=== PATIENT | male | born 1985 | race African-American/Black ===

== ENCOUNTER 2019-10-10 08:57 | Emergency (ER) | payer BC ==
[~2019-10-10] VITALS: Ht 185.4 cm; Wt 158.8 kg
[~2019-10-10 08:57] MED LIST: AFRIN15 ML NS; AUGMENTIN 875875 MG PO; FLONASE 0.05%50 MCG NASAL; METFORMIN HCL500 MG PO; MOBIC15 MG PO; PREDNISONE 20 M20 MG PO
[2019-10-10 11:39] VITALS: BP 111/63
== END 2019-10-10 11:40 | disposition home or self-care (01) ==
LOC: ER 08:57
DX: H53.8 Other visual disturbances (principal); E11.9 Type 2 diabetes mellitus without complications

== ENCOUNTER 2020-04-14 20:10 | Emergency (ER) | payer OTHER ==
[~2020-04-14] VITALS: Ht 185.4 cm; Wt 158.8 kg
[2020-04-14 20:20] VITALS: BP 149/86
[2020-04-14] MEDS ORDERED: NORCO 7.5-3251 EACH PO (21:21)
[2020-04-14] MEDS ORDERED: LIDOCAINE PAIN1 EACH TRANSDERM (21:21)
== END 2020-04-14 21:34 | disposition home or self-care (01) ==
LOC: ER 20:10
DX: S20.221A Contusion of right back wall of thorax, initial encounter (principal); M54.5 Low back pain; R10.9 Unspecified abdominal pain; E11.9 Type 2 diabetes mellitus without complications; Z79.899 Other long term (current) drug therapy; W01.0XXA Fall on same level from slipping, tripping and stumbling without subsequent striking against object, initial encounter; Y93.89 Activity, other specified; Y92.69 Other specified industrial and construction area as the place of occurrence of the external cause; Y99.0 Civilian activity done for income or pay

== ENCOUNTER 2020-05-22 23:23 | Emergency (ER) | payer OTHER ==
[~2020-05-22] VITALS: Ht 185.4 cm; Wt 158.8 kg
[~2020-05-22 23:23] MED LIST changes: +LIDOCAINE PAIN1 EACH TRANSDERM; +NORCO 7.5-3251 EACH PO
[2020-05-22 23:52] VITALS: BP 147/90
== END 2020-05-22 23:59 | disposition home or self-care (01) ==
LOC: ER 23:23
DX: K64.4 Residual hemorrhoidal skin tags (principal); E11.9 Type 2 diabetes mellitus without complications; Z79.84 Long term (current) use of oral hypoglycemic drugs

== ENCOUNTER 2020-07-23 01:48 | Emergency (ER) | payer BC ==
[~2020-07-23] VITALS: Ht 185.4 cm; Wt 158.8 kg
[2020-07-23 03:23] LABS: ABSOLUTE NEUTROPHILS 4.9 thou/uL (1.4-8.2); BASOPHILS 1.8 % (0.0-2.0); EOSINOPHILS 2.3 % (0.0-3.0); HEMATOCRIT 39.2 % (42.0-52.0); HEMOGLOBIN 12.9 gm/dL (14.0-18.0); LYMPHOCYTES 25.3 % (24.0-44.0); MCH 27.3 pg (26.0-34.0); MCV 82.8 fL (80.0-100.0); MONOCYTES 9.4 % (1.0-8.0); PLATELET COUNT 227 thou/uL (150-400); POLYS 61.2 % (36.0-66.0); RBC 4.73 mil/uL (4.50-6.00); RDW 14.1 % (10.5-14.5); WBC 7.9 thou/uL (4.0-11.0)
[2020-07-23 03:30] LABS: ANION GAP 8 mmol/L (7-16); BUN 10 mg/dL (7-18); CALCIUM 8.8 mg/dL (8.5-10.1); CHLORIDE 103 mmol/L (98-107); CO2 27 mmol/L (21-32); GLUCOSE 192 mg/dL (74-106); SODIUM 138 mmol/L (136-145)
[2020-07-23 03:39] LABS: TROPONIN-I <0.06 ng/mL (<0.06)
[2020-07-23 04:16] VITALS: BP 111/63
--- NOTE | 2020-07-23 11:57 | EKG ---
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
== END 2020-07-23 04:23 | disposition home or self-care (01) ==
LOC: ER 01:48
PROVIDERS: Emergency Medicine
DX: E11.65 Type 2 diabetes mellitus with hyperglycemia (principal); R20.2 Paresthesia of skin; Z79.84 Long term (current) use of oral hypoglycemic drugs

== ENCOUNTER 2020-09-14 20:41 | Emergency (ER) | payer BC ==
[~2020-09-14] VITALS: Ht 185.4 cm; Wt 170.1 kg
[2020-09-14 21:21] LABS: BASOPHILS 1.6 % (0.0-2.0); EOSINOPHILS 2.6 % (0.0-3.0); HEMATOCRIT 39.2 % (42.0-52.0); HEMOGLOBIN 12.7 gm/dL (14.0-18.0); LYMPHOCYTES 21.8 % (24.0-44.0); MCH 27.2 pg (26.0-34.0); MCHC 32.4 g/dL (28.0-37.0); MCV 83.9 fL (80.0-100.0); PLATELET COUNT 226 thou/uL (150-400); RBC 4.68 mil/uL (4.50-6.00); RDW 14.3 % (10.5-14.5); WBC 6.4 thou/uL (4.0-11.0)
[2020-09-14 21:26] LABS: CREATININE 1.1 mg/dL (0.7-1.3); POTASSIUM 4.2 mmol/L (3.5-5.1)
[2020-09-14 21:33] LABS: ALBUMIN 3.6 g/dL (3.4-5.0); TOTAL BILIRUBIN 0.3 mg/dL (0.2-1.0); TOTAL PROTEIN 7.7 g/dL (6.4-8.2)
[2020-09-14] MEDS ORDERED: VALTREX 500 MG500 MG PO (22:17)
[2020-09-14] MEDS ORDERED: NORCO 10-325 T1 EACH PO (22:17)
[2020-09-14 22:19] VITALS: BP 129/50
[2020-09-14 22:21] LABS: URINE BILIRUBIN NEGATIVE (Negative); URINE BLOOD NEGATIVE (Negative); URINE CLARITY CLEAR; URINE COLOR YELLOW; URINE GLUCOSE-RANDOM* NEGATIVE (Negative); URINE KETONES NEGATIVE (Negative); URINE LEUKOCYTES-REFLEX TRACE (Negative); URINE NITRITE-REFLEX NEGATIVE (Negative); URINE PROTEIN (DIPSTICK) NEGATIVE (Negative); URINE SPECIFIC GRAVITY >= 1.030 (1.005-1.035)
--- NOTE | 2020-09-16 07:17 | EKG ---
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1985 Requested By: Murtaza Nichols Order Number: [id number] MD: Joseph Hernández Measurements Intervals [place] Rate: 88 P: 40 [place]: 166 QRS: -18 QRSD: 108 T: 0 QT: 364 QTc: 441 Interpretive Statements Sinus rhythm Borderline left axis deviation Borderline T abnormalities, inferior leads Baseline wander in lead(s) V2 Compared to ECG 07/23/2020 02:00:34 T-wave abnormality now present Incomplete right bundle-branch block no longer present Electronically Signed On 09-16-2020 7:17:35 PUBLIC SERVICE REPRESENTATIVE by Joseph Hernández [email or web address] <ELECTRONICALLY SIGNED> By: Joseph Hernández MD, [facility] 09/16/20 0717 09 09 Joseph Hernández MD, [facility] /EPI
== END 2020-09-14 22:29 | disposition home or self-care (01) ==
LOC: ER 20:41
PROVIDERS: Physician Assistant
DX: R07.81 Pleurodynia (principal); B02.9 Zoster without complications; E11.9 Type 2 diabetes mellitus without complications